=== PATIENT | male | born 1955 | race Two or more races ===

== ENCOUNTER 2016-09-11 14:25 | Observation (INO) | payer MEDICARE, MEDICAID ==
[~2016-09-11] VITALS: Ht 167.6 cm; Wt 87.1 kg
[2016-09-11 15:55] LABS: Basophils # (auto) 0 uL; Basophils % (auto) 0.3 % (0.0-2.0); Eosinophils # (auto) 0.1 uL; Eosinophils % (auto) 1.4 % (0.0-7.0); Hemoglobin 13.9 g/dL (13.5-17.5); Lymphocytes # (auto) 2.8 uL; Lymphocytes % (auto) 42.1 % (10.0-50.0); Mean Corpuscular Hemoglobin 29.2 pg (28.0-32.0); Mean Corpuscular Hgb Conc. 33.1 g/dL (32.0-36.0); Mean Corpuscular Volume 88.2 fL (80.0-100.0); Mean Platelet Volume 7.9 fL (7.4-10.4); Monocytes # (auto) 0.6 uL; Monocytes % (auto) 8.3 % (0.0-12.0); Neutrophils # (auto) 3.2 uL; Neutrophils % (auto) 47.9 % (37.0-80.0); Platelet Count (auto) 260 10^3/uL (140-450); White Blood Cell 6.7 10^3/uL (4.4-10.8)
[2016-09-11 15:57] LABS: Albumin 3.5 g/dL (3.4-5.0); BUN/Creatinine Ratio 12.5; Potassium 4.5 mmol/L (3.5-5.1)
[2016-09-11 16:00] LABS: Bilirubin, Total 0.7 mg/dL (0.2-1.0)
[2016-09-11 17:19] LABS: Urine RBC None Seen /hpf (0 - 3)
[2016-09-11 17:50] LABS: Urine Bilirubin Negative (Negative); Urine Blood Negative /uL (Negative); Urine Color Yellow (Yellow); Urine Glucose 4+ mg/dL (Normal); Urine Ketone TRACE (Negative); Urine Nitrite Negative (Negative); Urine Urobilinogen Normal (Negative)
[2016-09-11] MEDS ORDERED: MORPHINE SULFATE 4 MG/ML SYRG IV ONE (20:45)
[2016-09-11] MEDS ORDERED: ONDANSETRON HCL 4 MG/2 ML VIAL IV ONE (20:45)
[2016-09-12] MEDS ORDERED: IOHEXOL 300 MG/ML 100ML BOTTLE IJ ONE (01:01)
[2016-09-12] MEDS ORDERED: InsuLIN REG 1unit/0.01ml Soln (100units/ml) IV ONE (02:15)
[2016-09-12] MEDS ORDERED: SODIUM CHLORIDE 0.9% 1,000 ML IV ONE (02:15)
[2016-09-12] MEDS ORDERED: HYDROmorphone HCL 2 MG/ML VL IV ONE (02:15)
[2016-09-12] MEDS ORDERED: ONDANSETRON HCL 4 MG/2 ML VIAL IV ONE (02:15)
[2016-09-12 04:30] VITALS: BP 146/96
== END 2016-09-12 06:18 | disposition home or self-care (01) | DRG 103 ==
LOC: ER 14:33 → OVERFLOW 09-12 02:52 → ER 09-12 06:18
PROVIDERS: ADMIT Emergency Medicine; ATTEND Emergency Medicine
DX: R51 Headache (principal); J02.9 Acute pharyngitis, unspecified; R73.9 Hyperglycemia, unspecified; H92.02 Otalgia, left ear; I10 Essential (primary) hypertension; E11.9 Type 2 diabetes mellitus without complications
CPT/HCPCS: 36415; 70360; 70450; 70491; 80053; 81001; 82962; 85025; 96361; 96374; 96375; 96376; 99285; G0378; J1170; J2270; J2405; J7030; Q9967

== ENCOUNTER 2023-05-22 14:33 | Emergency (ER) | payer MEDICARE, MEDICAID ==
[~2023-05-22] VITALS: Ht 175.3 cm; Wt 89.4 kg
[2023-05-22 16:58] LABS: Urine Bacteria NONE SEEN /hpf (None Seen); Urine Blood 3+ /uL (Negative); Urine Clarity HAZY (Clear); Urine Color PINK (Yellow); Urine Protein, UAD 3+ (Negative); Urine Specific Gravity 1.029 (1.001-1.035); Urine WBC 15 /hpf (0 - 3); Urine pH 5.5 (5.0-8.0)
[2023-05-22] MEDS ORDERED: NITR-87 PO (17:27)
[2023-05-22] MEDS ORDERED: PHEN-1044 PO (17:30)
[2023-05-22 17:48] VITALS: BP 104/54; PULSE 71; RESP 16; O2SAT 98
== END 2023-05-22 17:52 | disposition home or self-care (01) ==
LOC: ER 14:33
DX: N39.0 Urinary tract infection, site not specified (principal); E11.9 Type 2 diabetes mellitus without complications; I10 Essential (primary) hypertension; Z88.0 Allergy status to penicillin; Z91.040 Latex allergy status
CPT/HCPCS: 81001; 82962